=== PATIENT | female | born 1955 | race Caucasian/White ===

== ENCOUNTER 2016-08-29 16:18 | Emergency (ER) | payer BC ==
[2016-08-29 16:27] VITALS: BMI 40.2
[2016-08-29] MEDS ORDERED: NS 1,000 ML IV ONE (17:12)
[2016-08-29 17:22] LABS: AUTOMATED BASOPHIL 1.3 % (0-2); AUTOMATED EOSINOPHIL 3.2 % (0-5); AUTOMATED LYMPH 31.6 % (17-44); AUTOMATED MONOCYTE 9.7 % (3-10); AUTOMATED NEUTROPHIL 54.2 % (45-76)
[2016-08-29 17:37] LABS: LEUKOCYTES/URINE NEG (NEGATIVE); NITRITE/URINE NEG (NEGATIVE); RBC/URINE 0-2 (0-5); URINE OCCULT BLOOD NEG (NEG/TRACE); WBC/URINE 0-2 (0-5)
[2016-08-29 17:42] LABS: BLOOD UREA NITROGEN 13 MG/DL (7-17); CALCIUM 9.7 MG/DL (8.4-10.2); CALCULATED OSMOLALITY 264 MOs/Kg (270-290); CHLORIDE 99 mEq/L (98-107); GLUCOSE 94 mg/dL (70-99); SODIUM LEVEL 137 mEq/L (137-146); TOTAL PROTEIN 7.9 G/DL (6.3-8.2)
[2016-08-29] MEDS ORDERED: KETOROLAC TROMETH 30 MG/ML VIAL IV ONE (17:51)
[2016-08-29] MEDS ORDERED: Pharmacy Review for Metformin - IV Contrast Given SCH (18:00)
--- NOTE | 2016-08-29 18:23 | EDPRACDOC ---
- General Information Chief Complaint: Abdominal Pain Stated Complaint: RT UPPER ABD PAIN FOR A LONG TIME Time Seen by Provider: 08/29/16 17:08 Information Source: Patient Mode Of Arrival: Car Home Medications: Home Medications Aspirin (Enteric Coated) [Ecotrin] 81 mg PO .QEVENING 08/04/13 Estradiol [Estrace] 1 mg PO .QEVENING 08/04/13 Pantoprazole Sodium [Protonix] 40 mg PO DAILY 08/04/13 Sertraline HCl [Zoloft] 100 mg PO .QEVENING 08/04/13 Valsartan/Hydrochlorothiazide [Diovan Hct 160-12.5 mg Tab] 1 tab PO DAILY Allergies/Adverse Reactions: Allergies Allergy/AdvReac Type Severity Reaction Status Date / Time latex Allergy Severe rash Verified 08/29/16 17:10 meperidine HCl [From Demerol] Allergy Nausea/Vomi Verified 08/29/16 17:10 ting Penicillins Allergy Unknown Verified 08/29/16 17:10 Sulfa (Sulfonamide Allergy Hives* Verified 08/29/16 17:10 Antibiotics) - 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 BRANNON. PT SAID THAT NO ONE CAN FIGURE OUT WHAT IS WRONG AND SHE WANTS TO KNOW WHAT IS WRONG. NO OTHER SX. Pain Location: Reports: RUQ Pain Context: Reports: Spontaneous Pain Severity: Moderate Last Menstrual Period: hysterectomy : No Adult Abdominal History: Reports: Abdominal Surgery Female Abdominal History: Reports: Abdominal Surgery Modifying Factors: improves with: Nothing Oral Intake: Normal Urinary Output: Normal ED Past Medical History - Patient Medical History Cardiac History: Reports: Hypertension GI/ History: Reports: Gastroesophageal Reflux Psychological History: Denies: Depression Surgical History: Reports: Cholecystectomy, Hysterectomy, Other (FOOT SURGERY, WRIST SURGERY) - Family Medical History Reports: Hypertension, Cancer - Social Medical History Smoking Status: Never smoker ETOH: None Substance Abuse: None Lives In: Home EDM Review of Systems - Review of Systems ROS Negative Except as Marked: Yes All systems reviewed and were negative except as marked Gastrointestinal: Pain - Physical Exam Constitutional: Alert (Awake), No apparent distress Oriented to: Time, Person, Place Last recorded Vital Signs: Last Vital Signs Temp 98.1 F 08/29/16 17:22 Pulse 73 08/29/16 18:29 Resp 20 08/29/16 18:29 BP 158/78 08/29/16 18:29 Pulse Ox 97 08/29/16 18:29 Oxygen Pulse Oxygen Saturation 97 O2 Device Room Air Oxygen Flow Rate Fraction of Inspired Oxygen ( FIO2) - HEENT Head: Normal ( normocephalic) Eye Exam: Normal (PERRL, EOMI, Sclera white) Oropharynx: Normal (Pharynx:Moist without exudate,Gums-no swelling) ENT EAC: Normal TMJ: Normal Nose: No Symptoms Reported (septum midline) Neck: Normal (FROM, trachea at midline) - Respiratory/Cardiovascular Respiratory: Normal - CTA (BBS clear to auscultation without adventitious sounds ) Cardiovascular: Normal (RRR without murmur, gallop or rub) - GI Auscultation: Normal (NABS) Palpation: Normal (Soft,No rebound or guarding, non distended) Tenderness: Mild, RUQ Turner's Sign: Negative - Musculoskeletal Back: Normal (Non-Tender) Extremities: Normal (Normal tone, Pulses 2+ No cyanosis or edema, FROM) - Integumentary Skin: Normal, Warm, Dry Lymphatics: Normal (no adenopathy) - Neurologic Memory Impaired: Normal Motor Function: Normal (Normal tone, Pulses 2+ No cyanosis or edema, FROM) Cranial Nerve: Normal (CN II-X11 intact sensation, strength 5/5) Cerebellar: Normal Mood Description: Normal Thought: Coherent Perception: Normal - Results 08/29/16 17:00 08/29/16 17:00 WBC 5.4 xk/uL (3.8-10.8) 08/29/16 17:00 RBC 4.61 xM/uL (4.20-5.40) 08/29/16 17:00 Hgb 14.7 g/dL (12.0-16.0) 08/29/16 17:00 Hct 42.3 % (36-47) 08/29/16 17:00 MCV 92 fL (81-99) 08/29/16 17:00 MCH 31.9 pg (27-32) 08/29/16 17:00 MCHC 34.7 g/dl (33-36) 08/29/16 17:00 RDW 12.8 % (11.5-14.5) 08/29/16 17:00 Plt Count 332 xk/uL (130-400) 08/29/16 17:00 MPV 8.0 fL (7.4-10.4) 08/29/16 17:00 Neut % (Auto) 54.2 % (45-76) 08/29/16 17:00 Lymph % (Auto) 31.6 % (17-44) 08/29/16 17:00 Trigg % (Auto) 9.7 % (3-10) 08/29/16 17:00 Eos % (Auto) 3.2 % (0-5) 08/29/16 17:00 Baso % (Auto) 1.3 % (0-2) 08/29/16 17:00 Absolute Neuts (auto) 2.92 xk/uL (1.7-8.2) 08/29/16 17:00 Absolute Lymphs (auto) 1.67 xk/uL (0.65-4.75) 08/29/16 17:00 Sodium 137 mEq/L (137-146) 08/29/16 17:00 Potassium 3.6 mEq/L (3.5-5.1) 08/29/16 17:00 Chloride 99 mEq/L (98-107) 08/29/16 17:00 Carbon Dioxide 28 mMOL/L (22-33) 08/29/16 17:00 Anion Gap 14 mEq/L (8-16) 08/29/16 17:00 BUN 13 MG/DL (7-17) 08/29/16 17:00 Creatinine 0.80 MG/DL (0.52-1.04) 08/29/16 17:00 Estimated GFR (MDRD) > 60 mL/min (>=60) 08/29/16 17:00 Glucose 94 mg/dL (70-99) 08/29/16 17:00 Calculated Osmolality 264 MOs/Kg (270-290) L 08/29/16 17:00 Calcium 9.7 MG/DL (8.4-10.2) 08/29/16 17:00 Total Bilirubin 1.2 MG/DL (0.2-1.3) 08/29/16 17:00 AST 39 IU/L (14-36) H 08/29/16 17:00 ALT 43 IU/L (9-52) 08/29/16 17:00 Alkaline Phosphatase 73 IU/L (55-165) 08/29/16 17:00 Total Protein 7.9 G/DL (6.3-8.2) 08/29/16 17:00 Albumin 4.7 G/DL (3.5-5.0) 08/29/16 17:00 Lipase 217 U/L (23-300) 08/29/16 17:00 Urine Color Pale yellow 08/29/16 17:23 Urine Clarity Clear 08/29/16 17:23 Urine pH 5.0 (5.0-8.0) 08/29/16 17:23 Ur Specific [place] 1.005 (1.003-1.035) 08/29/16 17:23 Urine Protein Neg (NEG/TRACE) 08/29/16 17:23 Urine Glucose (UA) Neg (NEGATIVE) 08/29/16 17:23 Urine Ketones Neg (NEGATIVE) 08/29/16 17:23 Urine Occult Blood Neg (NEG/TRACE) 08/29/16 17:23 Urine Nitrite Neg (NEGATIVE) 08/29/16 17:23 Urine Bilirubin Neg (NEGATIVE) 08/29/16 17:23 Urine Urobilinogen <2.0 MG/DL (0-1) 08/29/16 17:23 Ur Leukocyte Esterase Neg (NEGATIVE) 08/29/16 17:23 Urine RBC 0-2 (0-5) 08/29/16 17:23 Urine WBC 0-2 (0-5) 08/29/16 17:23 Ur Epithelial Cells 2+ 08/29/16 17:23 Urine Bacteria Few (NEG/FEW) 08/29/16 17:23 Urine Mucus Occ (NEG/OCC) 08/29/16 17:23 Lab Results 08/29/16 08/29/16 08/29/16 17:23 17:00 17:00 WBC 5.4 RBC 4.61 Hgb 14.7 Hct 42.3 MCV 92 MCH 31.9 MCHC 34.7 RDW 12.8 Plt Count 332 MPV 8.0 Neut % (Auto) 54.2 Lymph % (Auto) 31.6 Trigg % (Auto) 9.7 Eos % (Auto) 3.2 Baso % (Auto) 1.3 Absolute Neuts (auto) 2.92 Absolute Lymphs (auto) 1.67 Sodium 137 Potassium 3.6 Chloride 99 Carbon Dioxide 28 Anion Gap 14 BUN 13 Creatinine 0.80 Estimated GFR (MDRD) > 60 Glucose 94 Calculated Osmolality 264 L Calcium 9.7 Total Bilirubin 1.2 AST 39 H ALT 43 Alkaline Phosphatase 73 Total Protein 7.9 Albumin 4.7 Lipase 217 Urine Color Pale yellow Urine Clarity Clear Urine pH 5.0 Ur Specific [place] 1.005 Urine Protein Neg Urine Glucose (UA) Neg Urine Ketones Neg Urine Occult Blood Neg Urine Nitrite Neg Urine Bilirubin Neg Urine Urobilinogen <2.0 Ur Leukocyte Esterase Neg Urine RBC 0-2 Urine WBC 0-2 Ur Epithelial Cells 2+ Urine Bacteria Few Urine Mucus Occ - Diagnostic Imaging Abdomen Image interpreted by: Radiologist 08/29/16 18:47 1. No acute findings in the abdomen or pelvis to account for the patient's symptoms. 2. Very mild dilatation of the common bile duct and minimal intrahepatic biliary ductal dilatation, presumably related to benign post cholecystectomy physiology. Correlation with liver function tests may be warranted. 3. Normal appendix. 4. Additional incidental findings, as above. Decision Time to Discharge: 18:47 - Departure Yes I personally saw and evaluated the patient. Disposition: Home Condition: Fair Final Diagnosis: Abdominal pain Instructions: Acute Abdominal Pain (ED) Education/Counseling Given To: Patient Education/Counseling Given Regarding: Diagnosis, Treatment, Follow Up Referrals: Slade Hale MD [Primary Care Provider] - One Week Prescriptions: No Action Sertraline HCl [Zoloft] 100 mg PO .QEVENING Pantoprazole Sodium [Protonix] 40 mg PO DAILY Estradiol [Estrace] 1 mg PO .QEVENING Aspirin (Enteric Coated) [Ecotrin] 81 mg PO .QEVENING Valsartan/Hydrochlorothiazide [Diovan Hct 160-12.5 mg Tab] 1 tab PO DAILY
--- NOTE | 2016-08-29 18:43 | DIRPT ---
CLINICAL DATA: 61-year-old female with history of right upper quadrant abdominal pain for the past several years, worsening over the past several weeks. EXAM: CT ABDOMEN AND PELVIS WITH CONTRAST TECHNIQUE: Multidetector CT imaging of the abdomen and pelvis was performed using the standard protocol following bolus administration of intravenous contrast. CONTRAST: 100 mL of Isovue 370. COMPARISON: CT the abdomen and pelvis 04/07/2013. FINDINGS: Lower chest: Small hiatal hernia. Hepatobiliary: No cystic or solid hepatic lesions. Status post cholecystectomy. Minimal intrahepatic biliary ductal dilatation. Common bile duct measures 11 mm in the natalya hepatis, similar to prior CT scan 04/07/2013, presumably related to benign post cholecystectomy physiology. Pancreas: No pancreatic mass. No pancreatic ductal dilatation. No pancreatic or peripancreatic fluid or inflammatory changes. Spleen: Unremarkable. Adrenals/Urinary Tract: Bilateral adrenal glands and bilateral kidneys are normal in appearance. No hydroureteronephrosis. Urinary bladder is normal in appearance. Stomach/Bowel: Normal appearance of the stomach. No pathologic dilatation of small bowel or colon. Normal appendix. Vascular/Lymphatic: No significant atherosclerotic disease, aneurysm or dissection identified in the abdominal or pelvic vasculature. No lymphadenopathy noted in the abdomen or pelvis. Reproductive: Status post hysterectomy. Ovaries are not confidently identified may be surgically absent or atrophic. Other: No significant volume of ascites. No pneumoperitoneum. Musculoskeletal: There are no aggressive appearing lytic or blastic lesions noted in the visualized portions of the skeleton. IMPRESSION: 1. No acute findings in the abdomen or pelvis to account for the patient's symptoms. 2. Very mild dilatation of the common bile duct and minimal intrahepatic biliary ductal dilatation, presumably related to benign post cholecystectomy physiology. Correlation with liver function tests may be warranted. 3. Normal appendix. 4. Additional incidental findings, as above. Electronically Signed By: Peter Tao M.D. On: 08/29/2016 18:41
[2016-08-29 18:58] VITALS: BP 120/60; PULSE 78; TEMP 97.9
== END 2016-08-29 19:10 | disposition home or self-care (01) ==
LOC: ED 16:18
DX: R10.9 Unspecified abdominal pain (principal)
CPT/HCPCS: 36415; 74177; 80053; 81001; 83690; 85025; 96361; 96374; 99284; A9698; J1885